=== PATIENT | male | born 1935 | race Caucasian/White ===

== ENCOUNTER 2017-10-29 13:54 | Emergency (ER) | payer MEDICARE ==
[~2017-10-29] VITALS: Ht 190.5 cm; Wt 103.2 kg
[~2017-10-29 13:54] MED LIST: ASPI81TA52 PO; FISH1CAP2 PO; FURO20TA4 PO; HYT1T PO; LISI-600 PO; METO-411 PO; RANI150T8 PO; SIMV20TA5 PO; SPIR25TA5 PO
[2017-10-29 14:02] VITALS: BP 143/76
== END 2017-10-29 16:31 | disposition home or self-care (01) ==
LOC: ER 13:54
DX: R51 Headache (principal); I48.91 Unspecified atrial fibrillation; I10 Essential (primary) hypertension; Z98.890 Other specified postprocedural states; Z85.038 Personal history of other malignant neoplasm of large intestine; Z88.0 Allergy status to penicillin; Z79.82 Long term (current) use of aspirin; Z79.899 Other long term (current) drug therapy
CPT/HCPCS: 70450; 99284

== ENCOUNTER 2018-02-11 09:36 | Emergency (ER) | payer MEDICARE ==
[~2018-02-11] VITALS: Ht 190.5 cm; Wt 106.7 kg
[2018-02-11 10:21] LABS: BASOPHILS % (AUTO) 0.7 % (0-1); EOSINOPHILS # (AUTO) 0.3 X10'3 (0-0.9); EOSINOPHILS % (AUTO) 4.9 % (0-6); HEMATOCRIT 38.2 % (42.0-52.0); HEMOGLOBIN 12.8 g/dl (14.0-17.9); LYMPHOCYTES # (AUTO) 0.9 X10'3 (1.1-4.8); LYMPHOCYTES % (AUTO) 16.2 % (21-51); MEAN CORPUSCULAR HEMOGLOBIN 32.8 PG (27.0-31.0); MEAN CORPUSCULAR HGB CONC 33.5 % (33.0-36.5); MEAN CORPUSCULAR VOLUME 97.9 FL (78-98); MEAN PLATELET VOLUME 8.5 FL (7.4-10.4); MONOCYTES # (AUTO) 0.5 X10'3 (0-0.9); MONOCYTES % (AUTO) 9.8 % (2-12); NEUTROPHILS # (AUTO) 3.8 X10'3 (1.8-7.7); NEUTROPHILS % (AUTO) 68.4 % (42-75); PLATELET COUNT 167 X10'3 (140-440); RED CELL DISTRIBUTION WIDTH 14.5 % (11.5-14.5); WHITE BLOOD COUNT 5.6 X10'3 (4.5-11.0)
[2018-02-11 10:45] LABS: ALANINE AMINOTRANSFERASE 17 U/L (12-78); ALBUMIN 3.6 G/DL (3.4-5.0); ALBUMIN/GLOBULIN RATIO 1.4 (1.1-1.5); ALKALINE PHOSPHATASE 52 IU/L (46-116); ANION GAP 9 (8-16); ASPARTATE AMINO TRANSFERASE 13 U/L (10-37); BILIRUBIN,TOTAL 0.8 MG/DL (0.1-1.0); BLOOD UREA NITROGEN 16 MG/DL (7-18); BUN/CREATININE RATIO 15.5 (5.4-32.0); CALCIUM 9.2 MG/DL (8.5-10.1); CHLORIDE 107 MMOL/L (99-107); CREATININE 1.03 MG/DL (0.60-1.10); GLUCOSE 134 MG/DL (70-104); POTASSIUM 3.8 MMOL/L (3.5-5.1); SODIUM 141 MMOL/L (135-145); TOTAL CARBON DIOXIDE 24.9 MMOL/L (24-32); TOTAL PROTEIN 6.2 G/DL (6.4-8.2); eGFR 69 ML/MIN
[2018-02-11 12:07] VITALS: BP 140/53
== END 2018-02-11 12:09 | disposition home or self-care (01) ==
LOC: ER 09:37
DX: S22.31XA Fracture of one rib, right side, initial encounter for closed fracture (principal); S09.90XA Unspecified injury of head, initial encounter; S50.312A Abrasion of left elbow, initial encounter; S60.511A Abrasion of right hand, initial encounter; S60.512A Abrasion of left hand, initial encounter; I10 Essential (primary) hypertension; I48.91 Unspecified atrial fibrillation; Z88.0 Allergy status to penicillin; Z79.82 Long term (current) use of aspirin; Z79.899 Other long term (current) drug therapy; W01.198A Fall on same level from slipping, tripping and stumbling with subsequent striking against other object, initial encounter; Y93.89 Activity, other specified; Y92.89 Other specified places as the place of occurrence of the external cause; Y99.8 Other external cause status
CPT/HCPCS: 36415; 70450; 71045; 80053; 84484; 85025; 99284

== ENCOUNTER 2018-07-15 09:39 | Day surgery (SDC) | payer MEDICARE ==
[2018-07-13 12:10] LABS: BASOPHILS # (AUTO) 0.1 X10'3 (0-0.2); BASOPHILS % (AUTO) 0.8 % (0-1); EOSINOPHILS # (AUTO) 0.3 X10'3 (0-0.9); EOSINOPHILS % (AUTO) 3.8 % (0-6); HEMATOCRIT 38.9 % (42.0-52.0); HEMOGLOBIN 13.5 g/dl (14.0-17.9); LYMPHOCYTES # (AUTO) 1.1 X10'3 (1.1-4.8); LYMPHOCYTES % (AUTO) 13.1 % (21-51); MEAN CORPUSCULAR HEMOGLOBIN 32.8 PG (27.0-31.0); MEAN CORPUSCULAR HGB CONC 34.6 g/dL (33.0-36.5); MEAN CORPUSCULAR VOLUME 94.9 FL (78-98); MEAN PLATELET VOLUME 8.3 FL (7.4-10.4); MONOCYTES # (AUTO) 0.9 X10'3 (0-0.9); MONOCYTES % (AUTO) 10.5 % (2-12); NEUTROPHILS % (AUTO) 71.8 % (42-75); PLATELET COUNT 212 X10'3 (140-440); RED CELL DISTRIBUTION WIDTH 14.7 % (11.5-14.5); WHITE BLOOD COUNT 8.4 X10'3 (4.5-11.0)
[2018-07-13 12:15] LABS: ALBUMIN 3.7 G/DL (3.4-5.0); ANION GAP 4 (8-16); BLOOD UREA NITROGEN 17 MG/DL (7-18); BUN/CREATININE RATIO 17.9 (5.4-32.0); CALCIUM 9.5 MG/DL (8.5-10.1); CHLORIDE 105 MMOL/L (99-107); CREATININE 0.95 MG/DL (0.60-1.10); GLUCOSE 103 MG/DL (70-104); POTASSIUM 4.6 MMOL/L (3.5-5.1); SODIUM 138 MMOL/L (135-145); TOTAL CARBON DIOXIDE 28.8 MMOL/L (24-32); eGFR 76 ML/MIN
[2018-07-13 12:26] LABS: PARTIAL THROMBOPLASTIN TIME 28 SECONDS (22-32)
[2018-07-15] VITALS (8 sets, daily range): BP systolic 108–152; BP diastolic 49–87
[~2018-07-15] VITALS: Ht 190.5 cm; Wt 101.7 kg
[2018-07-15] MEDS ORDERED: normal saline 1000ml 1,000 ML IV SCH (10:00)
[2018-07-15] MEDS ORDERED: clindamycin-Cleocin 900mg/D5W 50 ML IV ONE (10:37)
[2018-07-15] MEDS ORDERED: OMEP40CA37 PO (11:56)
[2018-07-15] MEDS ORDERED: DILT180C53 PO (11:56)
[2018-07-15] MEDS ORDERED: DIGO125T PO (11:56)
[2018-07-15] MEDS ORDERED: lidocaine 1%/epinephrine 1:100,000 injection 50ml vial ONE (13:13)
[2018-07-15] MEDS ORDERED: clindamycin phosphate 150mg/ml inj. ONE (13:13)
[2018-07-15] MEDS ORDERED: midazolam 2 mg/2 ml injection ONE (13:13)
[2018-07-15] MEDS ORDERED: fentaNYL/PF 50MCG/1 ML 2ML syringe ONE (13:13)
[2018-07-15] MEDS ORDERED: HYDROcodone/acetaminophen 5mg/325mg tablet PO PRN (15:50)
[2018-07-15] MEDS ORDERED: HYDROcodone/acetaminophen 10/325mg tab PO PRN (15:50)
== END 2018-07-15 19:20 | disposition home or self-care (01) ==
LOC: SSTAY O 09:39
PROVIDERS: ATTEND Internal Medicine Cardiovascular Disease
DX: I49.5 Sick sinus syndrome (principal); I48.0 Paroxysmal atrial fibrillation; E78.5 Hyperlipidemia, unspecified; I10 Essential (primary) hypertension
CPT/HCPCS: 33208; 36415; 71046; 80048; 85025; 85610; 85730; 93005; 99152; 99153; A6258; C1785; C1898; J2250; J3010; J3490; J7030; A4565; A4620; A6449; C1894

== ENCOUNTER 2019-07-23 08:33 | Day surgery (SDC) | payer MEDICARE ==
[~2019-07-23 08:33] MED LIST changes: +DIGO125T PO; +DILT180C53 PO; -FISH1CAP2 PO; -LISI-600 PO; -METO-411 PO; +OMEP40CA13 PO; +SIMV-42 PO; -SIMV20TA5 PO
[2019-07-23] MEDS ORDERED: LIDOcaine 2% 5ml jelly ONE (09:04)
== END 2019-07-23 10:51 | disposition home or self-care (01) ==
LOC: WOUND CARE 08:33
PROVIDERS: ATTEND Nurse Practitioner
DX: T81.89XA Other complications of procedures, not elsewhere classified, initial encounter (principal); I70.235 Atherosclerosis of native arteries of right leg with ulceration of other part of foot; L97.512 Non-pressure chronic ulcer of other part of right foot with fat layer exposed; I49.5 Sick sinus syndrome; I48.0 Paroxysmal atrial fibrillation; E78.5 Hyperlipidemia, unspecified; I10 Essential (primary) hypertension; K21.9 Gastro-esophageal reflux disease without esophagitis; I25.10 Atherosclerotic heart disease of native coronary artery without angina pectoris; Z85.46 Personal history of malignant neoplasm of prostate; Z87.891 Personal history of nicotine dependence; Z79.899 Other long term (current) drug therapy; Z79.82 Long term (current) use of aspirin; Z85.038 Personal history of other malignant neoplasm of large intestine; Y92.89 Other specified places as the place of occurrence of the external cause; Y83.8 Other surgical procedures as the cause of abnormal reaction of the patient, or of later complication, without mention of misadventure at the time of the procedure
CPT/HCPCS: 36415; 83036; 97597

== ENCOUNTER 2019-07-28 13:05 | Day surgery (SDC) | payer MEDICARE ==
[2019-07-28] MEDS ORDERED: LIDOcaine 2% 5ml jelly ONE (13:31)
== END 2019-07-28 14:03 | disposition home or self-care (01) ==
LOC: WOUND CARE 13:05
PROVIDERS: ATTEND Nurse Practitioner
DX: T81.89XD Other complications of procedures, not elsewhere classified, subsequent encounter (principal); I70.235 Atherosclerosis of native arteries of right leg with ulceration of other part of foot; L97.512 Non-pressure chronic ulcer of other part of right foot with fat layer exposed; I49.5 Sick sinus syndrome; I48.0 Paroxysmal atrial fibrillation; E78.5 Hyperlipidemia, unspecified; I10 Essential (primary) hypertension; K21.9 Gastro-esophageal reflux disease without esophagitis; I25.10 Atherosclerotic heart disease of native coronary artery without angina pectoris; Z85.46 Personal history of malignant neoplasm of prostate; Z87.891 Personal history of nicotine dependence; Z79.899 Other long term (current) drug therapy; Z79.82 Long term (current) use of aspirin; Z85.038 Personal history of other malignant neoplasm of large intestine; Y83.8 Other surgical procedures as the cause of abnormal reaction of the patient, or of later complication, without mention of misadventure at the time of the procedure
CPT/HCPCS: 97597

== ENCOUNTER 2019-07-30 09:25 | Day surgery (SDC) | payer MEDICARE ==
[2019-07-30] MEDS ORDERED: LIDOcaine 2% 5ml jelly ONE ×2 (09:53→12:54)
[2019-10-05] MEDS ORDERED: ATOR40TA PO (14:14)
[2019-10-05] MEDS ORDERED: CLOP75TA35 PO (14:14)
[2019-10-05] MEDS ORDERED: DOXY150T8 PO (14:15)
== END 2019-07-30 13:04 | disposition home or self-care (01) ==
LOC: WOUND CARE 09:25
PROVIDERS: ATTEND Nurse Practitioner
DX: T81.89XD Other complications of procedures, not elsewhere classified, subsequent encounter (principal); I70.235 Atherosclerosis of native arteries of right leg with ulceration of other part of foot; L97.512 Non-pressure chronic ulcer of other part of right foot with fat layer exposed; I49.5 Sick sinus syndrome; I48.0 Paroxysmal atrial fibrillation; E78.5 Hyperlipidemia, unspecified; I10 Essential (primary) hypertension; K21.9 Gastro-esophageal reflux disease without esophagitis; I25.10 Atherosclerotic heart disease of native coronary artery without angina pectoris; Z85.46 Personal history of malignant neoplasm of prostate; Z87.891 Personal history of nicotine dependence; Z79.899 Other long term (current) drug therapy; Z79.82 Long term (current) use of aspirin; Z85.038 Personal history of other malignant neoplasm of large intestine; Y83.8 Other surgical procedures as the cause of abnormal reaction of the patient, or of later complication, without mention of misadventure at the time of the procedure
CPT/HCPCS: 93922; 93925; 93970; 97597

== ENCOUNTER 2019-08-06 08:50 | Day surgery (SDC) | payer MEDICARE ==
[2019-08-06] MEDS ORDERED: LIDOcaine 2% 5ml jelly ONE (09:10)
== END 2019-08-06 10:08 | disposition home or self-care (01) ==
LOC: WOUND CARE 08:50
PROVIDERS: ATTEND Nurse Practitioner
DX: T81.89XD Other complications of procedures, not elsewhere classified, subsequent encounter (principal); I70.235 Atherosclerosis of native arteries of right leg with ulceration of other part of foot; L97.512 Non-pressure chronic ulcer of other part of right foot with fat layer exposed; I49.5 Sick sinus syndrome; I48.0 Paroxysmal atrial fibrillation; E78.5 Hyperlipidemia, unspecified; I10 Essential (primary) hypertension; K21.9 Gastro-esophageal reflux disease without esophagitis; I25.10 Atherosclerotic heart disease of native coronary artery without angina pectoris; Z85.46 Personal history of malignant neoplasm of prostate; Z87.891 Personal history of nicotine dependence; Z79.899 Other long term (current) drug therapy; Z79.82 Long term (current) use of aspirin; Z85.038 Personal history of other malignant neoplasm of large intestine; Y83.8 Other surgical procedures as the cause of abnormal reaction of the patient, or of later complication, without mention of misadventure at the time of the procedure
CPT/HCPCS: 97597

== ENCOUNTER 2019-08-09 08:50 | Day surgery (SDC) | payer MEDICARE ==
[2019-08-09] MEDS ORDERED: LIDOcaine 2% 5ml jelly ONE (09:16)
[2019-08-09 11:50] LABS: BASOPHILS # (AUTO) 0.1 X10'3 (0-0.2); BASOPHILS % (AUTO) 0.8 % (0-1); EOSINOPHILS # (AUTO) 0.2 X10'3 (0-0.9); HEMOGLOBIN 9.8 g/dl (14.0-17.9); LYMPHOCYTES # (AUTO) 0.9 X10'3 (1.1-4.8); MEAN CORPUSCULAR HEMOGLOBIN 26.8 PG (27.0-31.0); MEAN CORPUSCULAR HGB CONC 32.6 g/dL (33.0-36.5); MEAN CORPUSCULAR VOLUME 82.4 FL (78-98); MONOCYTES % (AUTO) 10.8 % (2-12); NEUTROPHILS # (AUTO) 7.3 X10'3 (1.8-7.7); NEUTROPHILS % (AUTO) 77.4 % (42-75); PLATELET COUNT 230 X10'3 (140-440); RED BLOOD COUNT 3.64 X10'6 (4.70-6.10); RED CELL DISTRIBUTION WIDTH 18.9 % (11.5-14.5); WHITE BLOOD COUNT 9.5 X10'3 (4.5-11.0)
[2019-08-09 12:15] LABS: ALANINE AMINOTRANSFERASE 14 U/L (12-78); ALBUMIN 3.4 G/DL (3.4-5.0); ALBUMIN/GLOBULIN RATIO 1.2 (1.1-1.5); ALKALINE PHOSPHATASE 62 IU/L (46-116); ANION GAP 8 (8-16); ASPARTATE AMINO TRANSFERASE 20 U/L (10-37); BILIRUBIN,TOTAL 0.5 MG/DL (0.1-1.0); BLOOD UREA NITROGEN 17 MG/DL (7-18); BUN/CREATININE RATIO 14.3 (5.4-32.0); CALCIUM 8.6 MG/DL (8.5-10.1); CHLORIDE 110 MMOL/L (99-107); CREATININE 1.19 MG/DL (0.60-1.10); GLUCOSE 105 MG/DL (70-104); POTASSIUM 4.4 MMOL/L (3.5-5.1); SODIUM 142 MMOL/L (135-145); TOTAL PROTEIN 6.2 G/DL (6.4-8.2); eGFR 58 ML/MIN
[2019-08-09 12:22] LABS: ANISOCYTOSIS 2+; ELLIPTOCYTES 1+; HYPOCHROMASIA 1+; PLATELET ESTIMATE NORMAL; POLYCHROMASIA FEW; TEAR DROP CELLS FEW
== END 2019-08-09 11:12 | disposition home or self-care (01) ==
LOC: WOUND CARE 08:50
PROVIDERS: ATTEND Nurse Practitioner Family
DX: T81.89XD Other complications of procedures, not elsewhere classified, subsequent encounter (principal); I70.235 Atherosclerosis of native arteries of right leg with ulceration of other part of foot; L97.512 Non-pressure chronic ulcer of other part of right foot with fat layer exposed; I49.5 Sick sinus syndrome; I48.0 Paroxysmal atrial fibrillation; E78.5 Hyperlipidemia, unspecified; I10 Essential (primary) hypertension; K21.9 Gastro-esophageal reflux disease without esophagitis; I25.10 Atherosclerotic heart disease of native coronary artery without angina pectoris; Z85.46 Personal history of malignant neoplasm of prostate; Z87.891 Personal history of nicotine dependence; Z79.899 Other long term (current) drug therapy; Z79.82 Long term (current) use of aspirin; Z85.038 Personal history of other malignant neoplasm of large intestine; Y83.8 Other surgical procedures as the cause of abnormal reaction of the patient, or of later complication, without mention of misadventure at the time of the procedure
CPT/HCPCS: 36415; 80053; 85025; 97597

== ENCOUNTER 2019-08-13 08:20 | Day surgery (SDC) | payer MEDICARE ==
[~2019-08-13] VITALS: Ht 190.5 cm; Wt 102.7 kg
[2019-08-13] MEDS ORDERED: LIDOcaine 2% 5ml jelly ONE (09:12)
[2019-08-13] MEDS ORDERED: acetylcysteine 200 MG/ml 4ml vial PO SCH (09:49)
[2019-08-13] MEDS ORDERED: sodium bicarbonate (8.4%) inj. 150 ML in dextrose 5%-water 1,000 ML IV ONE (09:50)
[2019-08-13 11:28] VITALS: BP 137/62
[2019-08-13] MEDS ORDERED: iohexol 350MG/ML 100ml bottle IV ONE (12:16)
[2019-08-13] MEDS ORDERED: iohexol 350 MG/ML 50ML vial IV ONE (12:16)
== END 2019-08-13 09:20 | disposition home or self-care (01) ==
LOC: SSTAY O 08:20
PROVIDERS: ATTEND Nurse Practitioner
DX: T81.89XD Other complications of procedures, not elsewhere classified, subsequent encounter (principal); I70.235 Atherosclerosis of native arteries of right leg with ulceration of other part of foot; L97.512 Non-pressure chronic ulcer of other part of right foot with fat layer exposed; I49.5 Sick sinus syndrome; I48.0 Paroxysmal atrial fibrillation; E78.5 Hyperlipidemia, unspecified; I10 Essential (primary) hypertension; K21.9 Gastro-esophageal reflux disease without esophagitis; I25.10 Atherosclerotic heart disease of native coronary artery without angina pectoris; Z85.46 Personal history of malignant neoplasm of prostate; Z87.891 Personal history of nicotine dependence; Z79.899 Other long term (current) drug therapy; Z79.82 Long term (current) use of aspirin; Z85.038 Personal history of other malignant neoplasm of large intestine; Y83.8 Other surgical procedures as the cause of abnormal reaction of the patient, or of later complication, without mention of misadventure at the time of the procedure
CPT/HCPCS: 75635; 76937; 97597; Q9967

== ENCOUNTER 2019-08-16 08:25 | Day surgery (SDC) | payer MEDICARE ==
[2019-08-16] MEDS ORDERED: LIDOcaine 2% 5ml jelly ONE (08:57)
== END 2019-08-16 09:48 | disposition home or self-care (01) ==
LOC: WOUND CARE 08:25
PROVIDERS: ATTEND Nurse Practitioner
DX: T81.89XD Other complications of procedures, not elsewhere classified, subsequent encounter (principal); I70.235 Atherosclerosis of native arteries of right leg with ulceration of other part of foot; L97.512 Non-pressure chronic ulcer of other part of right foot with fat layer exposed; I49.5 Sick sinus syndrome; I48.0 Paroxysmal atrial fibrillation; E78.5 Hyperlipidemia, unspecified; I10 Essential (primary) hypertension; K21.9 Gastro-esophageal reflux disease without esophagitis; I25.10 Atherosclerotic heart disease of native coronary artery without angina pectoris; Z85.46 Personal history of malignant neoplasm of prostate; Z87.891 Personal history of nicotine dependence; Z79.899 Other long term (current) drug therapy; Z79.82 Long term (current) use of aspirin; Z85.038 Personal history of other malignant neoplasm of large intestine; Y83.8 Other surgical procedures as the cause of abnormal reaction of the patient, or of later complication, without mention of misadventure at the time of the procedure
CPT/HCPCS: 76937; 97597

== ENCOUNTER 2019-08-23 08:35 | Outpatient (CLI) | payer MEDICARE | END 2019-08-23 10:45 | disposition home or self-care (01) | LOC: WOUND CARE 08:35 → EDSTATUS 09:40 → WOUND CARE 10:45 | PROVIDERS: ATTEND Nurse Practitioner Family | DX: T81.89XD Other complications of procedures, not elsewhere classified, subsequent encounter (principal); I70.235 Atherosclerosis of native arteries of right leg with ulceration of other part of foot; L97.512 Non-pressure chronic ulcer of other part of right foot with fat layer exposed; I49.5 Sick sinus syndrome; I48.0 Paroxysmal atrial fibrillation; E78.5 Hyperlipidemia, unspecified; I10 Essential (primary) hypertension; K21.9 Gastro-esophageal reflux disease without esophagitis; I25.10 Atherosclerotic heart disease of native coronary artery without angina pectoris; Z85.46 Personal history of malignant neoplasm of prostate; Z87.891 Personal history of nicotine dependence; Z79.899 Other long term (current) drug therapy; Z79.82 Long term (current) use of aspirin; Z85.038 Personal history of other malignant neoplasm of large intestine; Y83.8 Other surgical procedures as the cause of abnormal reaction of the patient, or of later complication, without mention of misadventure at the time of the procedure | CPT/HCPCS: G0463 ==

== ENCOUNTER 2019-08-30 08:10 | Day surgery (SDC) | payer MEDICARE | END 2019-08-30 09:42 | disposition home or self-care (01) | LOC: WOUND CARE 08:10 | PROVIDERS: ATTEND Nurse Practitioner Family | DX: T81.89XD Other complications of procedures, not elsewhere classified, subsequent encounter (principal); I70.235 Atherosclerosis of native arteries of right leg with ulceration of other part of foot; L97.512 Non-pressure chronic ulcer of other part of right foot with fat layer exposed; I49.5 Sick sinus syndrome; I48.0 Paroxysmal atrial fibrillation; E78.5 Hyperlipidemia, unspecified; I10 Essential (primary) hypertension; K21.9 Gastro-esophageal reflux disease without esophagitis; I25.10 Atherosclerotic heart disease of native coronary artery without angina pectoris; Z85.46 Personal history of malignant neoplasm of prostate; Z87.891 Personal history of nicotine dependence; Z79.899 Other long term (current) drug therapy; Z79.82 Long term (current) use of aspirin; Z85.038 Personal history of other malignant neoplasm of large intestine; Y83.8 Other surgical procedures as the cause of abnormal reaction of the patient, or of later complication, without mention of misadventure at the time of the procedure | CPT/HCPCS: 11042 ==

== ENCOUNTER 2019-09-06 08:35 | Day surgery (SDC) | payer MEDICARE ==
[2019-09-06] MEDS ORDERED: LIDOcaine 2% 5ml jelly ONE (08:53)
== END 2019-09-06 09:34 | disposition home or self-care (01) ==
LOC: WOUND CARE 08:35
PROVIDERS: ATTEND Nurse Practitioner Family
DX: T81.89XD Other complications of procedures, not elsewhere classified, subsequent encounter (principal); I70.235 Atherosclerosis of native arteries of right leg with ulceration of other part of foot; L97.512 Non-pressure chronic ulcer of other part of right foot with fat layer exposed; I49.5 Sick sinus syndrome; I48.0 Paroxysmal atrial fibrillation; E78.5 Hyperlipidemia, unspecified; I10 Essential (primary) hypertension; K21.9 Gastro-esophageal reflux disease without esophagitis; I25.10 Atherosclerotic heart disease of native coronary artery without angina pectoris; Z85.46 Personal history of malignant neoplasm of prostate; Z87.891 Personal history of nicotine dependence; Z79.899 Other long term (current) drug therapy; Z79.82 Long term (current) use of aspirin; Z85.038 Personal history of other malignant neoplasm of large intestine; Y83.8 Other surgical procedures as the cause of abnormal reaction of the patient, or of later complication, without mention of misadventure at the time of the procedure
CPT/HCPCS: 11042; 11045; 87070; 87075; 87102

== ENCOUNTER 2019-09-15 08:30 | Day surgery (SDC) | payer MEDICARE ==
[2019-09-15] MEDS ORDERED: LIDOcaine 2% 5ml jelly ONE (08:50)
== END 2019-09-15 09:35 | disposition home or self-care (01) ==
LOC: WOUND CARE 08:30
PROVIDERS: ATTEND Nurse Practitioner
DX: T81.89XD Other complications of procedures, not elsewhere classified, subsequent encounter (principal); I70.235 Atherosclerosis of native arteries of right leg with ulceration of other part of foot; L97.512 Non-pressure chronic ulcer of other part of right foot with fat layer exposed; I49.5 Sick sinus syndrome; I48.0 Paroxysmal atrial fibrillation; E78.5 Hyperlipidemia, unspecified; I10 Essential (primary) hypertension; K21.9 Gastro-esophageal reflux disease without esophagitis; I25.10 Atherosclerotic heart disease of native coronary artery without angina pectoris; Z85.46 Personal history of malignant neoplasm of prostate; Z87.891 Personal history of nicotine dependence; Z79.899 Other long term (current) drug therapy; Z79.82 Long term (current) use of aspirin; Z85.038 Personal history of other malignant neoplasm of large intestine; Y83.8 Other surgical procedures as the cause of abnormal reaction of the patient, or of later complication, without mention of misadventure at the time of the procedure
CPT/HCPCS: 11042; 82948

== ENCOUNTER 2019-09-27 09:25 | Day surgery (SDC) | payer MEDICARE ==
[2019-09-27] MEDS ORDERED: LIDOcaine 2% 5ml jelly ONE (09:49)
== END 2019-09-27 10:37 | disposition home or self-care (01) ==
LOC: WOUND CARE 09:25
PROVIDERS: ATTEND Nurse Practitioner
DX: T81.89XD Other complications of procedures, not elsewhere classified, subsequent encounter (principal); I70.235 Atherosclerosis of native arteries of right leg with ulceration of other part of foot; L97.512 Non-pressure chronic ulcer of other part of right foot with fat layer exposed; I49.5 Sick sinus syndrome; I48.0 Paroxysmal atrial fibrillation; E78.5 Hyperlipidemia, unspecified; I10 Essential (primary) hypertension; K21.9 Gastro-esophageal reflux disease without esophagitis; I25.10 Atherosclerotic heart disease of native coronary artery without angina pectoris; Z85.46 Personal history of malignant neoplasm of prostate; Z87.891 Personal history of nicotine dependence; Z79.899 Other long term (current) drug therapy; Z79.82 Long term (current) use of aspirin; Z85.038 Personal history of other malignant neoplasm of large intestine; Y83.8 Other surgical procedures as the cause of abnormal reaction of the patient, or of later complication, without mention of misadventure at the time of the procedure
CPT/HCPCS: 73630; 97597

== ENCOUNTER 2019-10-01 08:33 | Day surgery (SDC) | payer MEDICARE ==
[2019-10-01] MEDS ORDERED: LIDOcaine 2% 5ml jelly ONE (08:47)
[2019-10-01 10:28] LABS: BASOPHILS # (AUTO) 0.1 X10'3 (0-0.2); BASOPHILS % (AUTO) 0.9 % (0-1); EOSINOPHILS # (AUTO) 0.2 X10'3 (0-0.9); EOSINOPHILS % (AUTO) 3.1 % (0-6); HEMATOCRIT 32.5 % (42.0-52.0); HEMOGLOBIN 10.4 g/dl (14.0-17.9); LYMPHOCYTES # (AUTO) 0.8 X10'3 (1.1-4.8); LYMPHOCYTES % (AUTO) 11.6 % (21-51); MEAN CORPUSCULAR HEMOGLOBIN 26.2 PG (27.0-31.0); MEAN CORPUSCULAR HGB CONC 32.1 g/dL (33.0-36.5); MEAN CORPUSCULAR VOLUME 81.6 FL (78-98); MEAN PLATELET VOLUME 8.1 FL (7.4-10.4); MONOCYTES # (AUTO) 0.8 X10'3 (0-0.9); MONOCYTES % (AUTO) 10.9 % (2-12); NEUTROPHILS # (AUTO) 5.1 X10'3 (1.8-7.7); NEUTROPHILS % (AUTO) 73.5 % (42-75); PLATELET COUNT 200 X10'3 (140-440); RED BLOOD COUNT 3.98 X10'6 (4.70-6.10); RED CELL DISTRIBUTION WIDTH 19.8 % (11.5-14.5); WHITE BLOOD COUNT 6.9 X10'3 (4.5-11.0)
[2019-10-01 10:39] LABS: ALANINE AMINOTRANSFERASE 14 U/L (12-78); ALBUMIN 3.2 G/DL (3.4-5.0); ALBUMIN/GLOBULIN RATIO 1.1 (1.1-1.5); ALKALINE PHOSPHATASE 52 IU/L (46-116); ANION GAP 6 (8-16); ASPARTATE AMINO TRANSFERASE 9 U/L (10-37); BILIRUBIN,TOTAL 0.6 MG/DL (0.1-1.0); BLOOD UREA NITROGEN 18 MG/DL (7-18); BUN/CREATININE RATIO 17.5 (5.4-32.0); CALCIUM 8.6 MG/DL (8.5-10.1); CHLORIDE 109 MMOL/L (99-107); CREATININE 1.03 MG/DL (0.60-1.10); GLUCOSE 116 MG/DL (70-104); POTASSIUM 4.3 MMOL/L (3.5-5.1); SODIUM 141 MMOL/L (135-145); TOTAL CARBON DIOXIDE 26.5 MMOL/L (24-32); TOTAL PROTEIN 6.1 G/DL (6.4-8.2); eGFR 69 ML/MIN
[2019-10-01 10:58] LABS: PLATELET ESTIMATE NORMAL
[2019-10-01 10:59] LABS: ANISOCYTOSIS 2+; ELLIPTOCYTES 1+; HYPOCHROMASIA 1+; POLYCHROMASIA 1+
[2019-10-05] MEDS ORDERED: CLOP75TA35 PO (14:14)
[2019-10-05] MEDS ORDERED: ATOR40TA PO (14:14)
[2019-10-05] MEDS ORDERED: DOXY150T8 PO (14:15)
== END 2019-10-01 10:38 | disposition home or self-care (01) ==
LOC: WOUND CARE 08:33
PROVIDERS: ATTEND Nurse Practitioner
DX: Z11.59 Encounter for screening for other viral diseases (principal); T81.89XD Other complications of procedures, not elsewhere classified, subsequent encounter; I70.235 Atherosclerosis of native arteries of right leg with ulceration of other part of foot; L97.512 Non-pressure chronic ulcer of other part of right foot with fat layer exposed; I49.5 Sick sinus syndrome; I48.0 Paroxysmal atrial fibrillation; E78.5 Hyperlipidemia, unspecified; I10 Essential (primary) hypertension; K21.9 Gastro-esophageal reflux disease without esophagitis; I25.10 Atherosclerotic heart disease of native coronary artery without angina pectoris; Z85.46 Personal history of malignant neoplasm of prostate; Z87.891 Personal history of nicotine dependence; Z79.899 Other long term (current) drug therapy; Z79.82 Long term (current) use of aspirin; Z85.038 Personal history of other malignant neoplasm of large intestine; Y83.8 Other surgical procedures as the cause of abnormal reaction of the patient, or of later complication, without mention of misadventure at the time of the procedure
CPT/HCPCS: 36415; 80053; 85025; 93005; 97597; U0003

== ENCOUNTER 2019-10-08 07:40 | Day surgery (SDC) | payer MEDICARE ==
[~2019-10-08] VITALS: Ht 182.9 cm; Wt 94.5 kg
[2019-10-08] VITALS (10 sets, daily range): BP systolic 110–132; BP diastolic 54–80
[~2019-10-08 07:40] MED LIST changes: -ASPI81TA52 PO; +ATOR40TA PO; +BUPIVAcaine/PF 2.5mg/ml (0.25%) 10ml vial ONE; +CLOP75TA35 PO; +DOXY150T8 PO; -SIMV-42 PO; +clindamycin-Cleocin 900mg/D5W 50 ML IV ONE; +famotidine 20mg tablet PO ONE; +ringers solution, lacted 1,000 ML IV SCH
[2019-10-08] MEDS ORDERED: midazolam 2 mg/2 ml injection ONE (10:11)
[2019-10-08] MEDS ORDERED: propofol inj 20 ML IV ONE (10:11)
[2019-10-08] MEDS ORDERED: fentaNYL/PF 50MCG/1 ML 2ML syringe ONE (10:11)
[2019-10-08] MEDS ORDERED: sevoflurane 250ml liquid IH ONE (10:17)
[2019-10-08] MEDS ORDERED: ringers solution, lacted 1,000 ML IV SCH (11:05)
[2019-10-08] MEDS ORDERED: proCHLORperazine 10 MG/2 ml inj IV PRN (11:05)
[2019-10-08] MEDS ORDERED: morphine 2 MG/ML inj. syringe IV PRN (11:05)
[2019-10-08] MEDS ORDERED: ondansetron/PF 4mg/2ml inj IV PRN (11:05)
[2019-10-08] MEDS ORDERED: morphine 4 MG/ML inj SYRINge IV PRN (11:05)
[2019-10-08] MEDS ORDERED: meperidine/PF 25mg/ml syringe IV PRN ×3 (11:05)
--- NOTE | 2019-10-08 11:18 | NUR ---
PATIENT ARRIVED TO RECOVERY VIA GURNEY WITH DR DEAN PATIENT TOO SLEEPY TO RESPOND, V/S WNL, NEUROVASCULAR CHECKS INTACT, 20G PIV R ARM, right foot wrapped with gauze and PATY wrap. Mask to 10L sats 100%.
--- NOTE | 2019-10-08 12:58 | NUR ---
Pt discharged to vehicle by wheelchair and crutches without incident. to receive patient, DC instructions reviewed with both, both verbalized understanding of all instructions. Foot dressing remains CDI. Pt states he has pain meds at home already. Pt knows to follow up with wound care clinic in 1 week. All belongings returned to the patient and IV dc'd.
== END 2019-10-08 12:58 | disposition home or self-care (01) ==
LOC: PAS 07:40
PROVIDERS: ATTEND Podiatrist Foot & Ankle Surgery
DX: M86.8X7 Other osteomyelitis, ankle and foot (principal); L97.518 Non-pressure chronic ulcer of other part of right foot with other specified severity; E78.5 Hyperlipidemia, unspecified; K21.9 Gastro-esophageal reflux disease without esophagitis; I10 Essential (primary) hypertension; I25.10 Atherosclerotic heart disease of native coronary artery without angina pectoris; Z88.0 Allergy status to penicillin; Z87.891 Personal history of nicotine dependence; Z72.89 Other problems related to lifestyle; Z85.46 Personal history of malignant neoplasm of prostate; Z89.021 Acquired absence of right finger(s); Z95.5 Presence of coronary angioplasty implant and graft; Z95.0 Presence of cardiac pacemaker; Z98.890 Other specified postprocedural states; Z97.0 Presence of artificial eye; Z80.9 Family history of malignant neoplasm, unspecified; Z82.49 Family history of ischemic heart disease and other diseases of the circulatory system
CPT/HCPCS: 28810; 82948; A6223; J2250; J2704; J3010; J3490; J7120; A4618; A6253; A6449; A7000

== ENCOUNTER 2019-10-29 09:00 | Day surgery (SDC) | payer MEDICARE ==
[~2019-10-29 09:00] MED LIST changes: -BUPIVAcaine/PF 2.5mg/ml (0.25%) 10ml vial ONE; -clindamycin-Cleocin 900mg/D5W 50 ML IV ONE; -famotidine 20mg tablet PO ONE; -ringers solution, lacted 1,000 ML IV SCH
[2019-10-29] MEDS ORDERED: LIDOcaine 2% 5ml jelly ONE (09:15)
[2019-10-29] MEDS ORDERED: LIDOcaine 1% w/epiNEPHrine 1:200,000 30ml vial ONE (10:05)
== END 2019-10-29 10:34 | disposition home or self-care (01) ==
LOC: WOUND CARE 09:00
PROVIDERS: ATTEND Nurse Practitioner
DX: T87.89 Other complications of amputation stump (principal); T81.89XD Other complications of procedures, not elsewhere classified, subsequent encounter; I70.235 Atherosclerosis of native arteries of right leg with ulceration of other part of foot; L97.512 Non-pressure chronic ulcer of other part of right foot with fat layer exposed; I49.5 Sick sinus syndrome; I48.0 Paroxysmal atrial fibrillation; E78.5 Hyperlipidemia, unspecified; I10 Essential (primary) hypertension; K21.9 Gastro-esophageal reflux disease without esophagitis; I25.10 Atherosclerotic heart disease of native coronary artery without angina pectoris; Z85.46 Personal history of malignant neoplasm of prostate; Z87.891 Personal history of nicotine dependence; Z79.899 Other long term (current) drug therapy; Z79.82 Long term (current) use of aspirin; Z88.0 Allergy status to penicillin; Z95.810 Presence of automatic (implantable) cardiac defibrillator; Z85.038 Personal history of other malignant neoplasm of large intestine; Y83.8 Other surgical procedures as the cause of abnormal reaction of the patient, or of later complication, without mention of misadventure at the time of the procedure; Y83.5 Amputation of limb(s) as the cause of abnormal reaction of the patient, or of later complication, without mention of misadventure at the time of the procedure
CPT/HCPCS: 15275; 87070; 87075; 87102; Q4196

== ENCOUNTER 2019-11-05 08:50 | Day surgery (SDC) | payer MEDICARE ==
[2019-11-05] MEDS ORDERED: LIDOcaine 2% 5ml jelly ONE (09:41)
== END 2019-11-05 10:43 | disposition home or self-care (01) ==
LOC: WOUND CARE 08:50
PROVIDERS: ATTEND Nurse Practitioner
DX: T87.89 Other complications of amputation stump (principal); T81.89XD Other complications of procedures, not elsewhere classified, subsequent encounter; I70.235 Atherosclerosis of native arteries of right leg with ulceration of other part of foot; L97.512 Non-pressure chronic ulcer of other part of right foot with fat layer exposed; I49.5 Sick sinus syndrome; I48.0 Paroxysmal atrial fibrillation; E78.5 Hyperlipidemia, unspecified; I10 Essential (primary) hypertension; K21.9 Gastro-esophageal reflux disease without esophagitis; I25.10 Atherosclerotic heart disease of native coronary artery without angina pectoris; Z85.46 Personal history of malignant neoplasm of prostate; Z87.891 Personal history of nicotine dependence; Z79.899 Other long term (current) drug therapy; Z79.82 Long term (current) use of aspirin; Z88.0 Allergy status to penicillin; Z95.810 Presence of automatic (implantable) cardiac defibrillator; Y83.8 Other surgical procedures as the cause of abnormal reaction of the patient, or of later complication, without mention of misadventure at the time of the procedure; Y83.5 Amputation of limb(s) as the cause of abnormal reaction of the patient, or of later complication, without mention of misadventure at the time of the procedure
CPT/HCPCS: 15275; 87070; 87075; 87077; 87102; Q4196; 87076; 87185

== ENCOUNTER 2019-11-08 08:25 | Outpatient (CLI) | payer MEDICARE | END 2019-11-08 09:22 | disposition home or self-care (01) | LOC: WOUND CARE 08:25 → EDSTATUS 08:40 → WOUND CARE 09:22 | PROVIDERS: ATTEND Nurse Practitioner | DX: T81.89XD Other complications of procedures, not elsewhere classified, subsequent encounter (principal); I70.235 Atherosclerosis of native arteries of right leg with ulceration of other part of foot; L97.512 Non-pressure chronic ulcer of other part of right foot with fat layer exposed; I49.5 Sick sinus syndrome; I48.0 Paroxysmal atrial fibrillation; E78.5 Hyperlipidemia, unspecified; I10 Essential (primary) hypertension; K21.9 Gastro-esophageal reflux disease without esophagitis; I25.10 Atherosclerotic heart disease of native coronary artery without angina pectoris; Z85.46 Personal history of malignant neoplasm of prostate; Z87.891 Personal history of nicotine dependence; Z79.899 Other long term (current) drug therapy; Z79.82 Long term (current) use of aspirin; Z95.810 Presence of automatic (implantable) cardiac defibrillator; Y83.8 Other surgical procedures as the cause of abnormal reaction of the patient, or of later complication, without mention of misadventure at the time of the procedure; Y83.5 Amputation of limb(s) as the cause of abnormal reaction of the patient, or of later complication, without mention of misadventure at the time of the procedure | CPT/HCPCS: G0463 ==

== ENCOUNTER 2019-11-12 08:20 | Day surgery (SDC) | payer MEDICARE ==
[2019-11-12] MEDS ORDERED: LIDOcaine 2% 5ml jelly ONE (08:31)
== END 2019-11-12 09:30 | disposition home or self-care (01) ==
LOC: WOUND CARE 08:20
PROVIDERS: ATTEND Nurse Practitioner
DX: T81.89XD Other complications of procedures, not elsewhere classified, subsequent encounter (principal); I70.235 Atherosclerosis of native arteries of right leg with ulceration of other part of foot; L97.512 Non-pressure chronic ulcer of other part of right foot with fat layer exposed; I49.5 Sick sinus syndrome; I48.0 Paroxysmal atrial fibrillation; E78.5 Hyperlipidemia, unspecified; I10 Essential (primary) hypertension; K21.9 Gastro-esophageal reflux disease without esophagitis; I25.10 Atherosclerotic heart disease of native coronary artery without angina pectoris; Z85.46 Personal history of malignant neoplasm of prostate; Z87.891 Personal history of nicotine dependence; Z79.899 Other long term (current) drug therapy; Z79.82 Long term (current) use of aspirin; Z95.810 Presence of automatic (implantable) cardiac defibrillator; Y83.5 Amputation of limb(s) as the cause of abnormal reaction of the patient, or of later complication, without mention of misadventure at the time of the procedure
CPT/HCPCS: 15275; Q4196

== ENCOUNTER 2019-11-17 07:50 | Day surgery (SDC) | payer MEDICARE ==
[2019-11-17] MEDS ORDERED: LIDOcaine 2% 5ml jelly ONE (08:14)
== END 2019-11-17 08:41 | disposition home or self-care (01) ==
LOC: WOUND CARE 07:50
PROVIDERS: ATTEND Nurse Practitioner
DX: T81.89XD Other complications of procedures, not elsewhere classified, subsequent encounter (principal); I70.235 Atherosclerosis of native arteries of right leg with ulceration of other part of foot; L97.512 Non-pressure chronic ulcer of other part of right foot with fat layer exposed; I49.5 Sick sinus syndrome; I48.0 Paroxysmal atrial fibrillation; E78.5 Hyperlipidemia, unspecified; I10 Essential (primary) hypertension; K21.9 Gastro-esophageal reflux disease without esophagitis; I25.10 Atherosclerotic heart disease of native coronary artery without angina pectoris; Z85.46 Personal history of malignant neoplasm of prostate; Z87.891 Personal history of nicotine dependence; Z79.899 Other long term (current) drug therapy; Z79.82 Long term (current) use of aspirin; Z95.810 Presence of automatic (implantable) cardiac defibrillator; Y83.5 Amputation of limb(s) as the cause of abnormal reaction of the patient, or of later complication, without mention of misadventure at the time of the procedure
CPT/HCPCS: 15275; Q4196; 97597

== ENCOUNTER 2019-11-24 09:05 | Day surgery (SDC) | payer MEDICARE ==
[2019-11-24] MEDS ORDERED: LIDOcaine 2% 5ml jelly ONE (09:10)
== END 2019-11-24 09:35 | disposition home or self-care (01) ==
LOC: WOUND CARE 09:05
PROVIDERS: ATTEND Nurse Practitioner
DX: T86.828 Other complications of skin graft (allograft) (autograft) (principal); T81.89XD Other complications of procedures, not elsewhere classified, subsequent encounter; I70.235 Atherosclerosis of native arteries of right leg with ulceration of other part of foot; L97.512 Non-pressure chronic ulcer of other part of right foot with fat layer exposed; I49.5 Sick sinus syndrome; I48.0 Paroxysmal atrial fibrillation; E78.5 Hyperlipidemia, unspecified; I10 Essential (primary) hypertension; K21.9 Gastro-esophageal reflux disease without esophagitis; I25.10 Atherosclerotic heart disease of native coronary artery without angina pectoris; Z85.46 Personal history of malignant neoplasm of prostate; Z87.891 Personal history of nicotine dependence; Z79.899 Other long term (current) drug therapy; Z79.82 Long term (current) use of aspirin; Z95.810 Presence of automatic (implantable) cardiac defibrillator; Y83.2 Surgical operation with anastomosis, bypass or graft as the cause of abnormal reaction of the patient, or of later complication, without mention of misadventure at the time of the procedure; Y83.8 Other surgical procedures as the cause of abnormal reaction of the patient, or of later complication, without mention of misadventure at the time of the procedure
CPT/HCPCS: 15275; Q4196

== ENCOUNTER 2019-12-01 08:32 | Day surgery (SDC) | payer MEDICARE ==
[2019-12-01] MEDS ORDERED: LIDOcaine 2% 5ml jelly ONE (08:55)
== END 2019-12-01 09:28 | disposition home or self-care (01) ==
LOC: WOUND CARE 08:32
PROVIDERS: ATTEND Nurse Practitioner
DX: T81.89XD Other complications of procedures, not elsewhere classified, subsequent encounter (principal); I70.235 Atherosclerosis of native arteries of right leg with ulceration of other part of foot; L97.512 Non-pressure chronic ulcer of other part of right foot with fat layer exposed; I49.5 Sick sinus syndrome; I48.0 Paroxysmal atrial fibrillation; E78.5 Hyperlipidemia, unspecified; I10 Essential (primary) hypertension; K21.9 Gastro-esophageal reflux disease without esophagitis; I25.10 Atherosclerotic heart disease of native coronary artery without angina pectoris; Z85.46 Personal history of malignant neoplasm of prostate; Z87.891 Personal history of nicotine dependence; Z79.899 Other long term (current) drug therapy; Z79.82 Long term (current) use of aspirin; Z95.810 Presence of automatic (implantable) cardiac defibrillator; Z89.421 Acquired absence of other right toe(s); Y83.8 Other surgical procedures as the cause of abnormal reaction of the patient, or of later complication, without mention of misadventure at the time of the procedure
CPT/HCPCS: 15275; Q4196

== ENCOUNTER 2019-12-08 09:40 | Day surgery (SDC) | payer MEDICARE ==
[2019-12-08] MEDS ORDERED: LIDOcaine 2% 5ml jelly ONE (10:44)
== END 2019-12-08 11:25 | disposition home or self-care (01) ==
LOC: WOUND CARE 09:40
PROVIDERS: ATTEND Nurse Practitioner
DX: T81.89XD Other complications of procedures, not elsewhere classified, subsequent encounter (principal); I70.235 Atherosclerosis of native arteries of right leg with ulceration of other part of foot; L97.512 Non-pressure chronic ulcer of other part of right foot with fat layer exposed; I49.5 Sick sinus syndrome; I48.0 Paroxysmal atrial fibrillation; E78.5 Hyperlipidemia, unspecified; I10 Essential (primary) hypertension; K21.9 Gastro-esophageal reflux disease without esophagitis; I25.10 Atherosclerotic heart disease of native coronary artery without angina pectoris; Z85.46 Personal history of malignant neoplasm of prostate; Z87.891 Personal history of nicotine dependence; Z79.899 Other long term (current) drug therapy; Z79.82 Long term (current) use of aspirin; Z95.810 Presence of automatic (implantable) cardiac defibrillator; Z89.421 Acquired absence of other right toe(s); Y83.8 Other surgical procedures as the cause of abnormal reaction of the patient, or of later complication, without mention of misadventure at the time of the procedure
CPT/HCPCS: 15275; Q4196

== ENCOUNTER 2019-12-15 09:30 | Day surgery (SDC) | payer MEDICARE ==
[2019-12-15] MEDS ORDERED: LIDOcaine 2% 5ml jelly ONE (10:01)
== END 2019-12-15 10:34 | disposition home or self-care (01) ==
LOC: WOUND CARE 09:30
PROVIDERS: ATTEND Nurse Practitioner
DX: T81.89XD Other complications of procedures, not elsewhere classified, subsequent encounter (principal); I70.235 Atherosclerosis of native arteries of right leg with ulceration of other part of foot; L97.512 Non-pressure chronic ulcer of other part of right foot with fat layer exposed; I49.5 Sick sinus syndrome; I48.0 Paroxysmal atrial fibrillation; E78.5 Hyperlipidemia, unspecified; I10 Essential (primary) hypertension; K21.9 Gastro-esophageal reflux disease without esophagitis; I25.10 Atherosclerotic heart disease of native coronary artery without angina pectoris; Z85.46 Personal history of malignant neoplasm of prostate; Z87.891 Personal history of nicotine dependence; Z79.899 Other long term (current) drug therapy; Z79.82 Long term (current) use of aspirin; Z95.810 Presence of automatic (implantable) cardiac defibrillator; Y83.8 Other surgical procedures as the cause of abnormal reaction of the patient, or of later complication, without mention of misadventure at the time of the procedure
CPT/HCPCS: 97597